=== PATIENT | female | born 1960 | race African-American/Black ===

== ENCOUNTER 2018-06-28 10:33 | Emergency (ER) | payer MEDICAID ==
[2018-06-28] MEDS ORDERED: Ketorolac Tromethamine 60 MG/2 ML VIAL ONE (11:29)
[2018-06-28] MEDS ORDERED: Fentanyl 100 MCG/2 ML VIAL ONE (12:26)
[2018-06-28] MEDS ORDERED: Lorazepam 2 MG/ML VIAL ONE (12:54)
--- NOTE | 2018-06-28 13:35 | RAD ---
LEFT FEMUR 2 VIEWS: HISTORY: Left leg injury. Fall. FINDINGS: Mild degenerative changes of the hip. Femur is intact. No acute fracture or dislocation. IMPRESSION: No acute osseous abnormalities are demonstrated. POS: JAYASHREE
--- NOTE | 2018-06-28 13:45 | RAD ---
PORTABLE AP VIEW PELVIS: DATE: 06/28/2018. HISTORY: Trauma, left leg pain. FINDINGS: There are scattered sclerotic densities seen throughout the visualized osseous structures of the pelv is bilaterally involving the limited proximal femurs and region of the sacrum. Findings may be relat ed to sclerotic metastatic lesions. There is a calcification seen just to the left of the L4-5 inter vertebral disk space. This is difficult to further localize. This does not have a typical appearanc e of a ureteral calculus, although ureteral calculus could not be entirely excluded. No or dislocation is appreciated. There is mild narrowing of the superolateral aspect of each joint space. IMPRESSION: 1. Sclerotic densities seen throughout the pelvis and involving the proximal bilateral femurs. Find ings are worrisome for diffuse osseous metastatic disease. Bone scan is recommended for further eval uation. 2. Calcification adjacent to the L4-5 interspace on the left. This does not have the typical appear ance of a ureteral calculus, although this is in the expected location. This may represent a gonadal vein calcification. If the patient has symptoms referring to left renal colic, CT scan could be per formed for further evaluation. CODE T POS: JAYASHREE
--- NOTE | 2018-06-28 14:03 | CT ---
NONCONTRAST CT PELVIS: DATE: 06/28/2018. HISTORY: Trauma. The patient complains of left leg pain and left hip pain after a fall on 06/21/2018. Histor y of breast cancer with metastatic disease. COMPARISON: None available. FINDINGS: There are innumerable scattered sclerotic densities seen throughout the visualized osseous structures including the lower lumbar spine, sacrum, iliac bones, and involving the proximal femur suggesting o sseous metastatic disease. No fracture or dislocation is seen. No joint effusion is appreciated inv olving either hip; although there is a question of a tiny amount of fluid involving the left hip join t which his probably physiologic. No free fluid is seen in the pelvis. The uterus is not visualized probably related to prior hysterec rudi. A gonadal vein calcification is seen on the left corresponding to calcification seen on recent pelvis radiograph. IMPRESSION: 1. Sclerotic osseous metastatic lesions diffusely throughout the pelvis and involving the proximal f emurs as well as lower lumbar spine. 2. No fracture or dislocation involving either hip. POS: JAYASHREE
== END 2018-06-28 13:00 | disposition home or self-care (01) ==
LOC: ERS 10:33
DX: C79.51 Secondary malignant neoplasm of bone (principal); C50.919 Malignant neoplasm of unspecified site of unspecified female breast
CPT/HCPCS: 72170; 72192; 96372; J1885; J2060; J3010

== ENCOUNTER 2018-08-02 18:04 | Inpatient (IN) | payer OTHER ==
--- NOTE | 2018-08-02 18:57 | RAD ---
PORTABLE CHEST: 08/02/18 HISTORY: Chest pain. Heart size is within normal limits. Left sided Mediport catheter is seen. Catheter tip overlies the d istal superior vena cava/right atrium junction. Lungs appear clear of any infiltrative process. Some slight increased density in the left mid lung field, but I would favor that this is related to sclero tic bone lesions rather than infiltrative process. IMPRESSION: 1. No active intrathoracic disease. 2. Findings suspicious for some sclerotic bone metastasis. POS: BORIS
[2018-08-02] MEDS ORDERED: Morphine 4 MG/ML VIAL ONE (19:00)
[2018-08-02 19:28] LABS: ALT (SGPT) 20 U/L (8-55); AST (SGOT) 91 U/L (5-34); Albumin 2.7 g/dL (3.5-5.0); Alkaline Phosphatase 420 U/L (40-150); Anion Gap 14 mmol/L (10-20); BUN (Urea Nitrogen) 8 mg/dL (9.8-20.1); Bilirubin, Total 1.7 mg/dL (0.2-1.2); Calc. Creatinine Clearance 0 mL/min (70-130); Calcium 7.8 mg/dL (7.8-10.44); Carbon Dioxide 17 mmol/L (22-29); Chloride 108 mmol/L (98-107); Estimated GFR-MDRD Greater than 90; Globulin 3.5 g/dL (2.4-3.5); Glucose 86 mg/dL (70-105); Potassium 3.2 mmol/L (3.5-5.1); Protein, Total 6.2 g/dL (6.0-8.3); Sodium 136 mmol/L (136-145)
[2018-08-02 19:59] LABS: Hemoglobin 9.6 g/dL (12.0-16.0); Mean Corpuscular HGB CONC 33.4 g/dL (32.0-36.0); Mean Corpuscular Hemoglobin 31.1 pg (27.0-31.0); Mean Corpuscular Volume 93.3 fL (78.0-98.0); RBC Distribution Width 16.2 % (11.5-14.5); Red Blood Cell (RBC) Count 3.09 mill/uL (4.20-5.40); White Blood Cell (WBC) Count 8.4 thou/uL (4.8-10.8)
[2018-08-02 20:00] LABS: CKMB 0.7 ng/mL (0-6.6)
[2018-08-02 20:06] LABS: Mean Platelet Volume 18.3 fL (7.4-10.4); Platelet Count 8 thou/uL (130-400); Reflex for Review?? YES
[2018-08-02 20:18] LABS: Anisocytosis SLIGHT = 6-15 cells (100X) (0-5/hpf); Band 4 % (5-11); Eosinophils 1 % (0-10); Lymphocytes 20 % (21-51); MDiff Complete? YES; Monocytes 6 % (0-10); Myelocyte 1 % (0-0); Neutrophil 68 % (42-75); Nucleated RBC 3 % (0); Platelet Morphology Comment Appears Decreased
--- NOTE | 2018-08-02 20:18 | PDOC.FPRHP ---
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 She has been receiving care at [facility] for the past 2 weeks, family wanted care transferred to [facility] where her 3 children live and she left AMA today. Breast cancer diagnosed in 2017. Metastasis to bone and brain was new diagnosis at [facility] admission. She was admitted for fever. Daughter reports she was started on IV antibiotics but unsure if she was still on them when they left. Oncologist is Dr Luz. She had been receiving chemo (Gemzar and Carboplatin) and radiation. Most recently receiving brain radiation. Last chemo tx 06/16/18. Currently reports pain 8/10, which is where she has been the last 2 weeks. She was 10/10 on admission but pain improved with morphine 8mg. Pain is located in lower abdomen. Daughter reports they found cancer in that area. She denies nausea, vomiting, chest pain, shortness of breath. Pt has been living with her mother in [place] and able to preform her ADLs prior to hospitalization. Daughter reports she is still able to walk but needs help at times. ED Course: Mrophine 8mg - Allergies/Adverse Reactions Allergies Allergy/AdvReac Type Severity Reaction Status Date / Time No Known Allergies Allergy Unverified 08/02/18 20:34 - Home Medications Medication Instructions Recorded Confirmed Type CARBOplatin 08/02/18 History Docusate [Colace] 100 g PO BID 08/02/18 08/02/18 History Gemzar 08/02/18 History HYDROcodone/Acetaminophen [Preston 10 - 325 mg PO Q4H PRN 08/02/18 08/02/18 History 10-325 Tablet] - History PMHx: Breast Cancer - receiving chemo and radiation PSHx: Hysterectomy FHx: Daughter breast cancer- Dr Sarah Oncologist Social: Denies tobacco, alcohol and drug use. - Review of Systems General: reports: other (reports pain). denies: fever/chills, weight/appetite/ sleep changes, fatigue Eyes: reports: other ENT: reports: other (reports decreased hearing over last 2 months). denies: nasal congestion, rhinorrhea Respiratory: denies: cough, shortness of breath Cardiovascular: denies: chest pain, palpitation Gastrointestinal: reports: abdominal pain. denies: nausea, vomiting Genitourinary: denies: dysuria Skin: reports: rashes (radiation skin changes on chest wall). denies: lesions Musculoskeletal: reports: pain, tenderness Neurological: denies: numbness, seizure - Vital signs BP: 138/90 HR: 90 RR: 19 Tmax: 98.3 Pox: 97% on RA Wt: 68kg - Physical Exam Constitutional: awake, alert and oriented, well developed HEENT: normocephalic and atraumatic, MMM, oropharynx clear, other (poor dentition. Wears glasses Diminished hearing) Neck: supple, trachea midline Heart: RRR, no murmurs/rubs/gallops, pulses present, no edema Lungs: CTAB, no respiratory distress, good air movement, no wheezing Abdomen: soft, bowel sounds present, other (tenderness in lower quadrants) Musculoskeletal: normal structure, normal tone Neurological: no focal deficit Skin: capillary refill <2 seconds, other (radiation changes on chest wall on right breast. Port on left chest) Psychiatric: normal mood and affect, good judgment and insight, intact recent and remote memory FMR H&P: Results - Labs Result Diagrams: 08/02/18 23:50 08/02/18 19:00 Lab results: WBC 8.4 thou/uL (4.8-10.8) 08/02/18 19:36 Hgb 9.6 g/dL (12.0-16.0) L 08/02/18 19:36 Hct 28.8 % (36.0-47.0) L 08/02/18 19:36 MCV 93.3 fL (78.0-98.0) 08/02/18 19:36 Plt Count 8 thou/uL (130-400) L* 08/02/18 19:36 Sodium 136 mmol/L (136-145) 08/02/18 19:00 Potassium 3.2 mmol/L (3.5-5.1) L 08/02/18 19:00 Chloride 108 mmol/L (98-107) H 08/02/18 19:00 Carbon Dioxide 17 mmol/L (22-29) L 08/02/18 19:00 BUN 8 mg/dL (9.8-20.1) L 08/02/18 19:00 Creatinine 0.57 mg/dL (0.6-1.1) L 08/02/18 19:00 Glucose 86 mg/dL (70-105) 08/02/18 19:00 Calcium 7.8 mg/dL (7.8-10.44) 08/02/18 19:00 Total Bilirubin 1.7 mg/dL (0.2-1.2) H 08/02/18 19:00 AST 91 U/L (5-34) H 08/02/18 19:00 ALT 20 U/L (8-55) 08/02/18 19:00 Alkaline Phosphatase 420 U/L (40-150) H 08/02/18 19:00 CK-MB (CK-2) 0.7 ng/mL (0-6.6) 08/02/18 19:00 Serum Total Protein 6.2 g/dL (6.0-8.3) 08/02/18 19:00 Albumin 2.7 g/dL (3.5-5.0) L 08/02/18 19:00 - Radiology Interpretation Chest x-ray Status: report reviewed by me Additional comment: Sclerotic bone lesions FMR H&P: A/P - Problem List (1) Thrombocytopenia Current Visit: No Status: Acute Code(s): D69.6 - THROMBOCYTOPENIA, UNSPECIFIED (2) Metastatic breast cancer Current Visit: No Status: Acute Code(s): C50.919 - MALIGNANT NEOPLASM OF UNSP SITE OF UNSPECIFIED FEMALE BREAST (3) Transaminitis Current Visit: No Status: Acute Code(s): R74.0 - NONSPEC ELEV OF LEVELS OF TRANSAMNS & LACTIC ACID DEHYDRGNSE (4) Hypokalemia Current Visit: Yes Status: Acute Code(s): E87.6 - HYPOKALEMIA (5) Hyperbilirubinemia Current Visit: Yes Status: Acute Code(s): E80.6 - OTHER DISORDERS OF BILIRUBIN METABOLISM (6) Elevated troponin Current Visit: Yes Status: Acute Code(s): R74.8 - ABNORMAL LEVELS OF OTHER SERUM ENZYMES - Plan Ms Kilgore is a 58yo female with pmh of metastatic breast cancer admitted for thrombocytopenia Thrombocytopenia - 8 on admission - hemodynamically stable - Minimize blood draws - Had been receiving transfusions at [facility] - Will transfuse 6pk platelets - CBC with next troponin - Requesting records - Admit to Medicine Metastatic breast cancer - Oncologist Dr Luz in [place] - Consult Onc in AM, daughter saw Dr Sarah for breast cancer - S/p Morphine 8mg in ED - Continue home pain regimen: Preston 10/325mg q6hr PRN - Ensure Enlive TID after meals - Requesting records Elevated Troponin - No ASA due to thrombocytopenia - EKG with ST segment changes, T wave inversions - Repeat EKG - Trend troponins Transaminitis - likely 2/2 liver mets - Continue to monitor Hyperbilirubinemia - likely 2/2 liver mets - Continue to monitor Hypokalcemia - 3.2 - Replaced with 40 PO in ED - Continue to monitor Hearing loss - likely result of carboplatin tx Code Status: FULL DVT ppx: SCDs and walking program FMR H&P: Upper Level - Pertinent history Ms. Kilgore is a 58 yo AAF with PMHx of breast cancer (dx 2017) with known metastasis to brain and bone who presened to ED for body aches and hip pain which has been characteristic of her cancer pain. She was recently hospitalized in [place] for 2 weeks at which time the mets were diagnosed. Daughter who is with her at bedside states that they were not wanting to do any more for her so they decided to leave AMA and bring her here where most of her family is. She denies any symptoms apart from pain in her hips which has been the main source of her cancer pain. - Pertinent findings Gen: awake, alert, answering most questions appropriately HEENT: NCAT, MMM, trachea midline CV: Intermittently tachycardic, regular rhythm, no murmur RESP: CTAB ABD: soft, NTND EXT: no edema - Plan Date/Time: 08/02/182017 58 yo F with known metastatic breast cancer here with thrombocytopenia and intractable pain 1. Thrombocytopenia - 8 on admission - Since < 10, will transfuse 1 6 pk platelets - Heme/onc consult - Monitor closely for bleeding, minimize blood draws 2. Metastatic breast cancer - Would like to transfer to oncologist here - Requesting records and will likely consult onc inpatient for Heme - Pain control, will need bowel regimen 3. Elevated troponin - No chest pain - T wave inversion on EKG, unknown if old or new, will repeat tonight - Downtrending, will check final trop at same time as thrombocytopenia 4. Transaminitis/hyperbilirubinemia - Suspect liver mets vs. medication side effect - Continue to monitor - Records pending 5. Hypokalemia - Replete and monitor, check Mg/Phos I, Darlene Gardner MD, PGY-3, have evaluated this patient and agree with findings/ plan as outlined by corporate development intern resident. Pertinent changes/additions are listed here.
[2018-08-02 21:15] LABS: Bilirubin Negative (Negative); Blood, Urine Small (Negative); Clarity CLEAR (Clear); Glucose, Urine (Dipstick) Negative (Negative); Leukocyte Negative (Negative); Nitrite Negative (Negative); Protein, Urine (Dipstick) 30 mg/dL (Neg-Trace); Specific Gravity, Urine 1.008 (1.002-1.036); pH, Urine 6.5 (5.0-9.0)
[2018-08-02 21:16] LABS: Bacteria/HPF None Seen HPF (None Seen); Hyaline Casts/LPF 0-3 HYALINE CAST LPF (0-3 Hyaline); Pathc Cast-AUWi Flag 0.14 (0-2.49); WBC/HPF 0-3 HPF (0-3)
[2018-08-02 21:19] LABS: Yeast-AUWi Flag 26.7 (0-25.0)
[2018-08-02 21:27] LABS: Troponin I 0.037 ng/mL (< 0.028)
[2018-08-02 21:29] LABS: Yeast-All Forms None Seen HPF (None Seen)
[2018-08-02] MEDS ORDERED: HYDROcodone/Acetaminophen 10/325 mg Tablet PO PRN (21:58)
[2018-08-02] MEDS ORDERED: Potassium Chloride 20 MEQ TAB PO SCH (22:00)
[2018-08-02 22:16] VITALS: BMI 26.5
[2018-08-02] MEDS ORDERED: Morphine 4 MG/ML VIAL SLOW IVP SCH ×2 (22:30→23:59)
[2018-08-02 23:06] LABS: Magnesium 1.1 mg/dL (1.6-2.6); Phosphorus 2.1 mg/dL (2.3-4.7)
[2018-08-03 00:34] LABS: #Lymphocytes 2.6 thou/uL (1.20-3.40); #Monocytes 0.6 thou/uL (0.11-0.59); #Neutrophils 5.6 thou/uL (1.40-6.50); %Basophils 0.3 % (0.0-1.0); %Eosinophils 0.5 % (0.0-10.0); %Lymphocytes 29.4 % (21.0-51.0); %Monocytes 6.3 % (0.0-10.0); %Neutrophils 63.5 % (42.0-75.0); Hemoglobin 9.1 g/dL (12.0-16.0); Mean Corpuscular HGB CONC 33.1 g/dL (32.0-36.0); Mean Corpuscular Hemoglobin 30.7 pg (27.0-31.0); Mean Corpuscular Volume 92.9 fL (78.0-98.0); Mean Platelet Volume 18.9 fL (7.4-10.4); Platelet Count 7 thou/uL (130-400); Platelet Morphology Comment Appears Decreased; RBC Distribution Width 15.9 % (11.5-14.5); Red Blood Cell (RBC) Count 2.97 mill/uL (4.20-5.40); White Blood Cell (WBC) Count 8.7 thou/uL (4.8-10.8)
[2018-08-03 00:48] LABS: Troponin I 0.046 ng/mL (< 0.028)
[2018-08-03 01:49] LABS: INR-International Normal Ratio 1.3; PTT 45.1 SEC (22.9-36.1); Prothrombin Time 16.5 SEC (12.0-14.7)
[2018-08-03] MEDS ORDERED: oxyCODONE/Acetaminophen 5 mg/325 mg Tablet PO PRN (02:30)
[2018-08-03] MEDS ORDERED: Morphine 4 MG/ML VIAL SLOW IVP PRN (02:45)
[2018-08-03] MEDS: oxyCODONE/Acetaminophen 5 mg/325 mg Tablet PO SCH ×6 (02:49→22:36)
[2018-08-03] MEDS: Morphine 4 MG/ML VIAL SLOW IVP PRN ×7 (02:49→22:58)
--- NOTE | 2018-08-03 06:54 | PDOC.FM ---
- Subjective Subjective: NAEO. Patient states she is currently pain free. Denies any N/V/D or constipation. - Objective MAR Reviewed: Yes Vital Signs & Weight: Vital Signs (12 hours) Temp Pulse Pulse Resp BP BP Pulse Ox 08/03/18 06:20 98.3 F 100 18 125/73 94 L 08/03/18 02:55 98.6 F 99 18 123/81 93 L 08/03/18 02:41 98.7 F 103 H 20 142/88 H 92 L 08/02/18 21:45 100.2 F H 102 H 20 148/75 H 95 Weight Weight 68 kg I&O: 08/01/18 08/02/18 08/03/18 06:59 06:59 06:59 Intake Total 250 Balance 250 Result Diagrams: 08/02/18 23:50 08/02/18 19:00 Phys Exam - Physical Examination Constitutional: NAD HEENT: moist MMs, sclera anicteric Neck: supple, full ROM Respiratory: no wheezing, no rales, no rhonchi, clear to auscultation bilateral Cardiovascular: RRR, no significant murmur Gastrointestinal: soft, non-tender, no distention, positive bowel sounds Neurological: non-focal, moves all 4 limbs Psychiatric: normal affect Skin: no rash, normal turgor Dx/Plan (1) Hypomagnesemia Code(s): E83.42 - HYPOMAGNESEMIA Status: Acute (2) Hypophosphatemia Code(s): E83.39 - OTHER DISORDERS OF PHOSPHORUS METABOLISM Status: Acute (3) Elevated troponin Code(s): R74.8 - ABNORMAL LEVELS OF OTHER SERUM ENZYMES Status: Acute (4) Hyperbilirubinemia Code(s): E80.6 - OTHER DISORDERS OF BILIRUBIN METABOLISM Status: Acute (5) Hypokalemia Code(s): E87.6 - HYPOKALEMIA Status: Acute (6) Metastatic breast cancer Code(s): C50.919 - MALIGNANT NEOPLASM OF UNSP SITE OF UNSPECIFIED FEMALE BREAST Status: Acute (7) Thrombocytopenia Code(s): D69.6 - THROMBOCYTOPENIA, UNSPECIFIED Status: Acute (8) Transaminitis Code(s): R74.0 - NONSPEC ELEV OF LEVELS OF TRANSAMNS & LACTIC ACID DEHYDRGNSE Status: Acute - Plan Plan: Ms Kilgore is a 58yo female with pmh of metastatic breast cancer admitted for thrombocytopenia. Thrombocytopenia - 8 on admission & down to 7 on repeat bloodwork - Will minimize blood draws & monitor vitals closely - Had been receiving transfusions at [facility]. Will request records today. - Will transfuse 6pk platelets & geta repeat CBC tomorrow AM. Metastatic breast cancer - Oncologist Dr Luz in [place] - Will consult Onc here tomorrow as daughter saw Dr Sarah for breast cancer. PC consulted as well to discuss goals of care. - S/p Morphine 8mg in ED - Will continue PO Percocet RAMOS Q4H w/ IV morphine for breakthrough pain today and convert to longer acting PO medication tomorrow after seeing how much she requires for pain control. - Ensure Enlive TID after meals - Requesting records from [place] - Will consult PT/OT as well for evaluation & treatment for deconditioning. Elevated Troponin - No ASA due to thrombocytopenia - EKG with ST segment changes, T wave inversions - Repeat EKG unchanged. - Likely demand ischemia. Very low suspicion for ACS. Will stop trending. Transaminitis - likely 2/2 liver mets - Will continue to monitor Hyperbilirubinemia - likely 2/2 liver mets - Will continue to monitor Hypokalemia - 3.2 on admission - Replaced with 40 PO in ED - Will continue to monitor Hypomagnesemia - Mg low at 1.1 on admission - Will replace with 2g IV - Will continue to monitor and replace PRN Hypophosphatemia - Phos mildly low at 2.1 - Will replace with 1 packet of PhosNak this AM and continue to monitor and replace PRN Hearing loss - likely result of carboplatin tx Code Status: FULL DVT ppx: SCDs and walking program GI PPx: None
[2018-08-03] MEDS: Docusate 100 MG CAP PO SCH ×2 (08:35→21:03)
[2018-08-03] MEDS: Polyethylene Glycol 3350 17 GM Packet PO SCH (08:35)
[2018-08-04] MEDS: Morphine 4 MG/ML VIAL SLOW IVP PRN ×3 (01:07→05:55)
[2018-08-04] MEDS: oxyCODONE/Acetaminophen 5 mg/325 mg Tablet PO SCH ×2 (04:00→05:54)
--- NOTE | 2018-08-04 06:20 | PDOC.FM ---
- Subjective Subjective: NAEO. Patient endorses improved abdominal pain. Says currently 09/07. Denies any fever/chills, SOB, cough, or palpitations. - Objective MAR Reviewed: Yes Vital Signs & Weight: Vital Signs (12 hours) Temp Pulse Resp BP Pulse Ox 08/04/18 00:00 98.2 F 111 H 20 127/77 92 L 08/03/18 21:00 99.5 F 116 H 20 118/71 92 L 08/03/18 20:00 92 L Weight Weight 68 kg I&O: 08/02/18 08/03/18 08/04/18 06:59 06:59 06:59 Intake Total 250 700 Balance 250 700 Result Diagrams: 08/04/18 06:20 08/04/18 06:20 Phys Exam - Physical Examination Constitutional: NAD HEENT: moist MMs Neck: supple, full ROM Respiratory: no wheezing, no rales, no rhonchi, clear to auscultation bilateral Cardiovascular: no significant murmur Gastrointestinal: soft, non-tender, no distention, positive bowel sounds Neurological: non-focal, moves all 4 limbs Psychiatric: normal affect Skin: no rash, normal turgor Dx/Plan (1) Hypomagnesemia Code(s): E83.42 - HYPOMAGNESEMIA Status: Acute (2) Hypophosphatemia Code(s): E83.39 - OTHER DISORDERS OF PHOSPHORUS METABOLISM Status: Acute (3) Elevated troponin Code(s): R74.8 - ABNORMAL LEVELS OF OTHER SERUM ENZYMES Status: Acute (4) Hyperbilirubinemia Code(s): E80.6 - OTHER DISORDERS OF BILIRUBIN METABOLISM Status: Acute (5) Hypokalemia Code(s): E87.6 - HYPOKALEMIA Status: Acute (6) Metastatic breast cancer Code(s): C50.919 - MALIGNANT NEOPLASM OF UNSP SITE OF UNSPECIFIED FEMALE BREAST Status: Acute (7) Thrombocytopenia Code(s): D69.6 - THROMBOCYTOPENIA, UNSPECIFIED Status: Acute (8) Transaminitis Code(s): R74.0 - NONSPEC ELEV OF LEVELS OF TRANSAMNS & LACTIC ACID DEHYDRGNSE Status: Acute - Plan Plan: Ms Kilgore is a 58yo female with pmh of metastatic breast cancer admitted for thrombocytopenia. Thrombocytopenia - 8 on admission & down to 7 on repeat bloodwork. Down to 6 this AM s/p 6packs of platelets yesterday. Will get a repeat AM CBC. - Will minimize blood draws & monitor vitals closely. - Had been receiving transfusions at [facility]. Will request records today. Metastatic breast cancer - Oncologist Dr Luz in [place]. - Will consult Onc here tomorrow as daughter saw Dr Sarah for breast cancer. PC consulted as well to discuss goals of care. - Will stat on 40mg oxycontin BID with percocet 5/325 Q4H PRN for breakthrough pain and titrate meds for pain control PRN. Will also consider adding gabapentin for bony met pain control. - Ensure Enlive TID after meals. - Requesting records from [place]. - Will consult PT/OT as well for evaluation & treatment for deconditioning. Elevated Troponin - No ASA due to thrombocytopenia - EKG with ST segment changes, T wave inversions - Repeat EKG unchanged. - Likely demand ischemia. Very low suspicion for ACS. Will stop trending. Transaminitis - likely 2/2 liver mets - Will continue to monitor Hyperbilirubinemia - likely 2/2 liver mets - Will continue to monitor Hypokalemia - 2.8 this AM - Will replaced with 40 PO BID-WM today - Will continue to monitor Hypomagnesemia - Mg low at 1.0 this AM. - Will replace with 2g IV - Will continue to monitor and replace PRN Hypophosphatemia - Phos mildly low at 2.0 this AM - Will replace with 1 packet of PhosNak TID and continue to monitor and replace PRN Hearing loss - likely result of carboplatin tx Code Status: FULL DVT ppx: SCDs and walking program GI PPx: None
[2018-08-04 06:45] LABS: Platelet Count 6 thou/uL (130-400)
[2018-08-04 06:47] LABS: Anion Gap 12 mmol/L (10-20); BUN (Urea Nitrogen) 4 mg/dL (9.8-20.1); Calc. Creatinine Clearance 112 mL/min (70-130); Calcium 7.7 mg/dL (7.8-10.44); Carbon Dioxide 24 mmol/L (22-29); Chloride 104 mmol/L (98-107); Estimated GFR-MDRD Greater than 90; Glucose 104 mg/dL (70-105); Sodium 137 mmol/L (136-145)
[2018-08-04 06:57] LABS: Potassium 2.8 mmol/L (3.5-5.1)
[2018-08-04] MEDS ORDERED: Magnesium 2 GM/50 ML 2 GM in Premix Bag 1 BAG IVPB SCH (07:15)
[2018-08-04 07:30] LABS: #Lymphocytes 1.7 thou/uL (1.20-3.40); #Monocytes 0.4 thou/uL (0.11-0.59); %Basophils 0.1 % (0.0-1.0); %Eosinophils 0.4 % (0.0-10.0); %Lymphocytes 27.9 % (21.0-51.0); %Monocytes 6.3 % (0.0-10.0); %Neutrophils 65.3 % (42.0-75.0); Hemoglobin 8.2 g/dL (12.0-16.0); Mean Corpuscular HGB CONC 32.9 g/dL (32.0-36.0); Mean Corpuscular Hemoglobin 30.9 pg (27.0-31.0); Mean Corpuscular Volume 93.8 fL (78.0-98.0); Mean Platelet Volume 16.9 fL (7.4-10.4); RBC Distribution Width 16.1 % (11.5-14.5); Red Blood Cell (RBC) Count 2.65 mill/uL (4.20-5.40); White Blood Cell (WBC) Count 6.1 thou/uL (4.8-10.8)
--- NOTE | 2018-08-04 08:37 | HP ---
ADDENDUM: Please see the note history and physical done by Dr. Doretha Gant, and also the progress note done by Jennifer Mayo. HISTORY OF PRESENT ILLNESS: This is an unfortunate 58-year-old Afro-[place]inese female, who comes in basically from [facility], where she was hospitalized for maybe a couple of weeks, where she was admitted sounds like potentially with fever there and metastatic breast cancer. Unclear on the history, it sounds like potentially they were talking hospice care and just palliative care, but then the daughter sees an oncologist here in town and wanted our oncologist opinion. Platelets have been extremely low, although not acutely bleeding. Complains of mostly lower abdominal pains. States her bowel movements are normal. There is some question if she may have cancer metastases in the area. Denied dysuria. It sounds like she gets a little bit confused at times and family members are maybe her power of transactional attorney. Unclear why the troponin levels were checked in the ER and they were borderline high. I think maybe she has had some heart issues in the past, although she had lot of this history as they are not the best historians. Family member is with the patient, who really denied much chest pain or shortness of breath today. Thus being admitted for severe abdominal pain, thought to be from metastatic cancer. Of note, she has been eating. No nausea. No vomiting. I think this is acute abdomen. PAST MEDICAL HISTORY: All per the residents history and physical that I fully reviewed. PAST SURGICAL HISTORY: All per the residents history and physical that I fully reviewed. FAMILY HISTORY: All per the residents history and physical that I fully reviewed. SOCIAL HISTORY: All per the residents history and physical that I fully reviewed. REVIEW OF SYSTEMS: All per the residents history and physical that I fully reviewed. MEDICATIONS: All per the residents history and physical that I fully reviewed. PHYSICAL EXAMINATION: GENERAL: Alert to name and place, pleasant, answers questions appropriately. Does not appear to be in any distress. She states currently it was not hurting. HEENT: Conjunctivae slightly pale. Moist mucosa. Anicteric. NECK: No lymphadenopathy or thyromegaly. CHEST: Clear. HEART: Regular rate and rhythm. ABDOMEN: Benign. Normally appreciate much tenderness in the lower quadrant. No rebound. No guarding or masses. EXTREMITIES: Showed no edema. LABORATORY DATA: Blood workup is significant for again troponin I being minimally elevated at 0.4 at worst. Albumin is low at 2.7, magnesium is low at 1.1, phosphorus low at 2.1, bilirubin is little bit high at 1.7, alkaline phosphatase is high at 420, potassium is low at 3.2, and bicarb is low at 17. White count was fine at 8.7, hemoglobin 9.1 this morning, and platelets were as low as 7, got 6 pack of platelets, we do not have the repeat yet. ASSESSMENT: 1. Metastatic breast cancer, now with abdominal pain thought to be from metastatic disease. 2. Thrombocytopenia. 3. Anemia. 4. Minimally elevated troponin. PLAN: Plan is to get Oncology involved tomorrow, but I will make sure she is stabilized today. We will give her the 6 pack platelets and follow along. Not acutely bleeding. I told her we need to be aggressive about that. We will follow the troponins at this point in time I do not think I am too concerned with needing a stress test, though she is fairly asymptomatic. I get Palliative Care involvement to help us to figure out her code status as it sounds like she signed DNR paperwork in the past, but family is now saying maybe we want full code. Obviously prognosis sounds very poor. Then, we will get oncology help as far as the platelets and where to proceed as far as the cancer goes. Job ID: [id number]
[2018-08-04] MEDS: Potassium Chloride 20 MEQ TAB PO SCH ×2 (08:56→16:00)
[2018-08-04] MEDS: Docusate 100 MG CAP PO SCH ×2 (08:56→21:38)
[2018-08-04] MEDS: Gabapentin 300 MG CAP PO SCH ×3 (08:56→21:39)
[2018-08-04] MEDS: oxyCODONE ER 20 MG TAB PO SCH ×2 (08:56→21:39)
[2018-08-04] MEDS: Polyethylene Glycol 3350 17 GM Packet PO SCH (08:57)
[2018-08-04] MEDS ORDERED: oxyCODONE ER 80 MG TAB PO SCH ×2 (09:00)
[2018-08-04] MEDS: oxyCODONE/Acetaminophen 5 mg/325 mg Tablet PO PRN ×2 (10:45→16:31)
--- NOTE | 2018-08-04 14:34 | PRG ---
DATE OF SERVICE: 08/04/2018 ADDENDUM: This is an addendum to the note of Dr. Jennifer Mayo. Ms. Kilgore is a very unfortunate 58-year-old lady with metastatic breast cancer to bone and brain. She also has a profound thrombocytopenia from recent chemotherapy, and we are giving her an additional platelet transfusion. We will also discuss and consult Dr. Sarah for further management. Job ID: [id number]
--- NOTE | 2018-08-04 17:29 | EKG ---
Test Reason : Blood Pressure : / mmHG Vent. Rate : 104 BPM Atrial Rate : 104 BPM P-R Int : 092 ms QRS Dur : 076 ms QT Int : 374 ms P-R-T Axes : 053 041 -86 degrees QTc Int : 491 ms Sinus tachycardia with short [place] Abnormal ECG No previous ECGs available Confirmed by HAILEY HADLEY, DR. Chapin ([id number]) on 08/04/2018 5:28:56 PM Referred By: VERNA Confirmed By:DR. Tavares HART MD
--- NOTE | 2018-08-04 23:29 | CON ---
DATE OF CONSULTATION: REASON FOR CONSULT: Breast cancer. HISTORY OF PRESENT ILLNESS: Ms. 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 She has bone mets at diagnosis. She has been getting carboplatin and gemcitabine over the past year. In March of last year, she was diagnosed with leptomeningeal metastatic disease. Her last chemotherapy was on July 07, 2018. Shortly thereafter, she was admitted to the hospital in [place], [place] for fever of 103, thrombocytopenia. Review of the medical records show multiple platelet transfusions with no response. She had an unsuccessful bone marrow which was a dry tap during that hospitalization. She was unable to have a lumbar puncture secondary to low platelets. 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 She did undergo three rounds of whole-brain radiation. Recommendation was for hospice. The patient's daughters live in this area, one of which has breast cancer with BRCA deletion. The patient and family decided to leave the [facility] to bring her to this area. According to the hospital records, the patient did not wait for the discharge instructions and left the hospital. She was brought, immediately on arrival to this area to our emergency room, the patient was complaining of severe abdominal pain and constipation. She was admitted for further treatment. The patient denies any chest pain or shortness of breath. She does have abdominal discomfort. The patient denies any melena, hematochezia, hemoptysis, or epistasis. PAST MEDICAL HISTORY: Stage IV metastatic breast cancer with bone and leptomeningeal mets. PAST SURGICAL HISTORY: Hysterectomy. ALLERGIES: NO KNOWN DRUG ALLERGIES. HOME MEDICATIONS: 1. Colace b.i.d. 2. Hydrocodone p.r.n. FAMILY HISTORY: Daughter with BRCA positive breast cancer. SOCIAL HISTORY: No alcohol, tobacco, or illicit drug use. REVIEW OF SYSTEMS: A 10-point review of systems is negative except for noted in HPI. PHYSICAL EXAMINATION: VITAL SIGNS: Temperature 98.6, pulse is 106, respiratory rate 16, BP is 115/80. She is 94% on room air. GENERAL: Chronically ill-appearing female, in no acute distress. HEENT: Normocephalic, atraumatic. Pupils are equal and reactive to light. NECK: Supple. CV: Regular rate and rhythm. LUNGS: Clear. ABDOMEN: Soft, nontender. Bowel sounds are positive. EXTREMITIES: No clubbing, cyanosis, or edema. SKIN: She has inflammatory breast cancer noted on her right chest wall. MediPort to her left chest wall. HEMATOLOGICAL: No petechiae or purpura. NEUROLOGICAL: The patient is alert and oriented. She does have generalized tremors. PERTINENT LABS AND X-RAYS: Current WBCs are 6.1, hemoglobin 8.2, hematocrit 24.8, platelet count is 6000, 65% neutrophils, 27% lymphocytes. PT 16.5, INR is 1.3, PTT is 45.1. Sodium is 137, potassium 2.8, chloride 104, CO2 is 24, BUN is 4, creatinine 0.58, calcium 7.7, phosphorus 2, magnesium 1, bilirubin 1.7, AST is 91, ALT is 20, alkaline phosphatase is 420. Serum total protein is 6.2, albumin 2.7, globulin 3.5. Chest x-ray shows sclerotic bony lesions. ASSESSMENT: 1. Stage IV metastatic breast cancer, triple negative with last chemotherapy of carboplatin and gemcitabine on July 07, 2018. 2. Leptomeningeal metastatic disease with status post three cycles of whole-brain radiation one week ago. 3. Thrombocytopenia, presumed chemo related with bone marrow infiltration by dry tap in [place], in July. 4. Transaminitis, chronic, present on prior hospitalization. No evidence of liver mass on CT scan dated July 16, 2018. DISCUSSION: The patient has advanced metastatic disease where she would unlikely tolerate any further chemo. She does have leptomeningeal spread. We will discuss with Dr. Sarah whether continued whole-brain radiation would be appropriate for this lady. Dr. Sarah will follow up with her recommendations. Thank you for the consult. Job ID: [id number]
[2018-08-05] MEDS ORDERED: Acetaminophen 500 MG TAB PO SCH (05:00)
[2018-08-05] MEDS: oxyCODONE/Acetaminophen 5 mg/325 mg Tablet PO PRN ×3 (05:07→21:56)
[2018-08-05 06:59] LABS: Hemoglobin 6.7 g/dL (12.0-16.0); Mean Corpuscular HGB CONC 32.3 g/dL (32.0-36.0); Mean Corpuscular Hemoglobin 30.4 pg (27.0-31.0); Mean Corpuscular Volume 94.2 fL (78.0-98.0); Mean Platelet Volume 18.2 fL (7.4-10.4); Platelet Count 8 thou/uL (130-400); RBC Distribution Width 15.9 % (11.5-14.5); Red Blood Cell (RBC) Count 2.21 mill/uL (4.20-5.40); White Blood Cell (WBC) Count 5.2 thou/uL (4.8-10.8)
[2018-08-05 07:04] LABS: Phosphorus 2.4 mg/dL (2.3-4.7)
[2018-08-05 07:06] LABS: Anion Gap 13 mmol/L (10-20); BUN (Urea Nitrogen) 4 mg/dL (9.8-20.1); Calc. Creatinine Clearance 100 mL/min (70-130); Calcium 7.5 mg/dL (7.8-10.44); Carbon Dioxide 24 mmol/L (22-29); Chloride 104 mmol/L (98-107); Estimated GFR-MDRD Greater than 90; Glucose 146 mg/dL (70-105); Magnesium 1.1 mg/dL (1.6-2.6); Potassium 3.2 mmol/L (3.5-5.1); Sodium 138 mmol/L (136-145)
--- NOTE | 2018-08-05 07:41 | PDOC.FM ---
- Subjective Subjective: Patient spiked a fever up to 100.5F overnight that was treated with tylenol. Endorses SOB on exam. Denies any chest pain, cough, or melena or hematochezia. - Objective MAR Reviewed: Yes Vital Signs & Weight: Vital Signs (12 hours) Temp Pulse Resp BP Pulse Ox 08/05/18 06:34 98.9 F 123 H 97 08/05/18 04:35 93 L 08/05/18 04:00 100.5 F H 130 H 16 129/80 90 L 08/04/18 23:47 99.1 F 126 H 18 135/88 93 L 08/04/18 20:00 91 L 08/04/18 19:59 98.4 F 115 H 16 117/82 91 L Weight Admit Weight 67.993 kg Weight 67.993 kg I&O: 08/04/18 08/05/18 08/06/18 06:59 06:59 06:59 Intake Total 1800 675 Output Total 1250 800 Balance 550 -125 Result Diagrams: 08/05/18 06:35 08/05/18 06:35 Phys Exam - Physical Examination Constitutional: NAD HEENT: moist MMs, sclera anicteric Neck: supple, full ROM Respiratory: no wheezing, no rales, no rhonchi, clear to auscultation bilateral Cardiovascular: RRR, no significant murmur Gastrointestinal: positive bowel sounds Musculoskeletal: no edema Neurological: non-focal, moves all 4 limbs Psychiatric: normal affect, A&O x 3 Skin: no rash, normal turgor, cap refill <2 seconds Dx/Plan (1) Metastatic breast cancer Code(s): C50.919 - MALIGNANT NEOPLASM OF UNSP SITE OF UNSPECIFIED FEMALE BREAST Status: Acute (2) Hypomagnesemia Code(s): E83.42 - HYPOMAGNESEMIA Status: Acute (3) Hypophosphatemia Code(s): E83.39 - OTHER DISORDERS OF PHOSPHORUS METABOLISM Status: Acute (4) Elevated troponin Code(s): R74.8 - ABNORMAL LEVELS OF OTHER SERUM ENZYMES Status: Acute (5) Hyperbilirubinemia Code(s): E80.6 - OTHER DISORDERS OF BILIRUBIN METABOLISM Status: Acute (6) Hypokalemia Code(s): E87.6 - HYPOKALEMIA Status: Acute (7) Thrombocytopenia Code(s): D69.6 - THROMBOCYTOPENIA, UNSPECIFIED Status: Acute (8) Transaminitis Code(s): R74.0 - NONSPEC ELEV OF LEVELS OF TRANSAMNS & LACTIC ACID DEHYDRGNSE Status: Acute - Plan Plan: Ms. Kilgore is a 58yo female with pmh of metastatic breast cancer admitted for thrombocytopenia. Thrombocytopenia - Stable at 8 this AM s/p 2 packs of platelets since admission. Per onc likely 2 /2 BM infiltration from brain mets &/or chemo. - Will minimize blood draws & monitor vitals closely. 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 Onc on board with this. Anemia - Hgb down to 6.7 this AM. - Will transfuse 1 unit and recheck Hgb 4 hours post-transfusion. - Will consider and FOBT given thrombocytopenia as well to r/o any active bleeding. Metastatic breast cancer - Oncologist Dr Luz in [place] but patient desires to be seen and treated by Dr. Sarah now. - Touched base with Dr. Sarah who came by and evaluated patient this AM. Does not believe patient will respond to any further chemo given her brain mets but will have Dr. Pena come and evaluate patient to address finishing brain radiation per family's wishes. Was able to convince patient and family to make patient DNAR. - PC on board. Appreciate recs. - Will continue 40mg oxycontin BID with percocet 5/325 Q4H PRN for breakthrough pain and titrate meds for pain control PRN. - Will continue gabapentin for bony met pain control. - Ensure Enlive TID after meals. - Will consult PT/OT as well for evaluation & treatment for deconditioning & placement recs. Elevated Troponin - No ASA due to thrombocytopenia - EKG with ST segment changes, T wave inversions - Repeat EKG unchanged. - Likely demand ischemia. Very low suspicion for ACS. Will stop trending. Transaminitis - likely 2/2 liver mets - Will continue to monitor Hyperbilirubinemia - likely 2/2 liver mets - Will continue to monitor Hypokalemia - 3.2 this AM - Will replaced with 40 PO BID-WM today - Will continue to monitor Hypomagnesemia - Mg low at 1.1 this AM. - Will replace with 2g IV - Will continue to monitor and replace PRN Hypophosphatemia, resolved - Phos WNLs at 2.4 this AM - Will continue to monitor and replace PRN Hearing loss - likely result of carboplatin tx Code Status: FULL DVT ppx: SCDs and walking program/PT GI PPx: None Dispo: Awaiting recs from Onc regarding d/c. Will likely need Hospice and palliative care.
[2018-08-05] MEDS ORDERED: Magnesium 2 GM/50 ML 2 GM in Premix Bag 1 BAG IVPB SCH (07:45)
[2018-08-05 08:05] LABS: Band 9 % (5-11); Eosinophils 1 % (0-10); Lymphocytes 33 % (21-51); MDiff Complete? YES; Monocytes 7 % (0-10); Neutrophil 50 % (42-75); Nucleated RBC 8 % (0); Platelet Morphology Comment Appears Decreased; Polychromasia SLIGHT = 2-3 cells (100X) (0-2/hpf)
[2018-08-05] MEDS ORDERED: oxyCODONE ER 20 MG TAB PO SCH ×2 (08:54→19:15)
[2018-08-05] MEDS: Potassium Chloride 20 MEQ TAB PO SCH ×2 (09:34→17:32)
[2018-08-05] MEDS: Polyethylene Glycol 3350 17 GM Packet PO SCH (09:34)
[2018-08-05] MEDS: Gabapentin 300 MG CAP PO SCH ×3 (09:34→21:54)
[2018-08-05] MEDS: Docusate 100 MG CAP PO SCH ×2 (09:34→21:54)
--- NOTE | 2018-08-05 12:49 | PRG ---
DATE OF SERVICE: 08/05/2018 The patient has been seen in consultation by Oncology and we appreciate their input. They feel that given her advanced metastatic disease, she would likely not tolerate further chemotherapy. She also has brain mets as well as thrombocytopenia. This is likely not responding as result of platelet antibodies. We will therefore discontinue and transfuse only if the patient should bleed. In the event, her outlook is extremely grim. Job ID: [id number]
[2018-08-05] MEDS ORDERED: oxyCODONE ER 10 MG TAB PO SCH ×3 (19:15→21:00)
[2018-08-05 20:08] LABS: Hemoglobin 9.6 g/dL (12.0-16.0)
--- NOTE | 2018-08-05 20:39 | CON ---
DATE OF CONSULTATION: 08/05/2018 REASON FOR CONSULTATION: Ms. 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 I was asked to see her for consideration of radiation therapy. HISTORY OF PRESENT ILLNESS: Ms. 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 She informs me that she had bone metastasis at diagnosis. She has been on chemotherapy ever since 2017. More recently, she was on carboplatin and Gemzar. Apparently, she is doing fairly well up until about a month ago. She was hospitalized in [place] because of fever and declining performance status. She has had problems with her blood counts. She did have an MRI of the brain, which suggested thickening of the leptomeninges with some edema consistent with leptomeningeal carcinomatosis. She underwent an attempted bone marrow biopsy, but this was a dry tap. She also was recommended to have a lumbar puncture, but this could not be performed because of her low platelets. She apparently started treatment with radiation and received three fractions of radiation therapy in [place]. It was recommended that she be on hospice care. She then apparently checked out of the hospital AMA and showed up in our emergency room because she has family who lives here in [facility]. She was admitted for workup and evaluation. She is pancytopenic and has a platelet count that has not responded to transfusion. She was seen by Cammy Sequeira and Dr. Sarah and felt not to be a candidate for chemotherapy. I am seeing her today to decide whether to continue her radiation. Presently, she denies any fever. She has no headaches or double vision. Her speech is slurred. She does feel that her legs are weak and denies any arm weakness. Several days ago, she was having lower back pain, but does not have any back pain at the present. She denies any leg numbness or bowel or bladder issues. She has no nausea or vomiting. She voices no other complaints. PAST MEDICAL HISTORY: 1. Stage IV metastatic breast cancer as mentioned above. 2. Status post hysterectomy. 3. She denies other medical or surgical problems. MEDICATIONS: 1. Colace. 2. Neurontin. 3. OxyContin. 4. Zofran. 5. Percocet. 6. MiraLAX. ALLERGIES: NO KNOWN MEDICAL ALLERGIES. FAMILY HISTORY: She does have a daughter who has BRCA positive breast cancer. SOCIAL HISTORY: The patient had been living in [place], [place]. She has no alcohol or tobacco use at the present time. REVIEW OF SYSTEMS: A 10-system review of systems is otherwise negative. PHYSICAL EXAMINATION: VITAL SIGNS: Height is 5 feet 3 inches, weight 149 pounds. Blood pressure is 142/78, pulse is 123, respirations are 16, temperature is 98.5, O2 saturation is 97% on room air. GENERAL: She is alert, but chronically ill in appearance. She is confined in the bed and states that she is really not able to walk at the present. Karnofsky performance status is 40%. HEENT: Eyes, pupils are equal, round, reactive to light. Extraocular movements are intact. ENT, oral cavity and oropharynx are normal without lesion or erythema. Palate elevates symmetrically. Gingiva is intact. NECK: Supple without cervical adenopathy. She appears to have multiple supraclavicular lymph nodes palpable on the right side. She possibly has supraclavicular adenopathy on the left. No thyromegaly. Larynx is midline. LUNGS: Breathing nonlabored. Clear to auscultation and percussion. CARDIOVASCULAR: Heart rate and rhythm without murmur. No lower extremity edema. LYMPHATIC: She does have palpable axillary lymph nodes on the right. No axillary adenopathy on the left. No inguinal adenopathy. BREASTS: She has multiple skin nodules involving the right breast. ABDOMEN: Soft, nontender, nondistended without mass or hepatosplenomegaly. Liver percusses to normal size. SKIN: Without rash or purpura. NEUROLOGIC: Cranial nerves 2 through 12 are grossly intact. Motor strength is 5/5 in both upper and lower extremities in all muscle groups tested. Reflexes are brisk, but symmetrical. Gait is not tested. LABORATORY DATA: CBC revealed a white blood cell count of 5200 with a hemoglobin of 6.7 and hematocrit of 20.8. Platelet count was 8000. Chemistry group showed a calcium of 7.5. She does have elevated liver function tests, which are chronic. RADIOLOGIC DATA: She does not have any imaging here. Reviewed the report from her MRI of the brain, showed some thickening of the leptomeninges with some vasogenic edema. CT scan has suggested extensive bone metastasis, no liver metastasis. ASSESSMENT: Ms. Kilgore is a 58-year-old female with end-stage metastatic triple negative breast cancer with bone metastasis and leptomeningeal carcinomatosis. PLAN: Ms. Kilgore does appear to have end-stage disease. Her performance status is quite poor and in discussing with her and the family it is quite evidence that she has declined fairly rapidly in the past month. Her pancytopenia is felt to be from extensive bone marrow involvement from her metastatic breast cancer and this was likely confirmed with a dry tap. She has thrombocytopenia that appears to be refractory to platelet infusions. Her biggest difficulty is rapidly declining status and the fact that she has a poor performance status now and basically is not able to get out of bed. She had been started on radiation therapy while in [place] for her leptomeningeal carcinomatosis. I think that with her poor performance status and the fact that she has such widespread disease with no additional treatment available with chemotherapy, her survival is likely to be quite short. I did confirm with Dr. Sarah that she really has no chemotherapy or other treatment options. Dr. Sarah agrees with me that her survival is likely to be quite short. I do not think that resuming palliative radiation therapy would be likely of much benefit. I do not think that radiation therapy would likely extend her survival or really improve her symptomatology. Since she did have some vasogenic edema, I think we could start her on some dexamethasone and see if this improves her situation. We could resume her radiation therapy, but my biggest concern is that she would spend basically most of the time that she has remained in trying to come for treatment when she would best be served by hospice care to try and maximize her survival and quality of life that way. Again, I do not think that radiation is going to make any meaningful change in her survival or quality of life. The logistics of radiation as well as the benefits and risk of treatment were discussed with her. Side effects would include, but not be limited to skin reaction, fatigue, hair loss, which may be permanent, headache, nausea, vomiting, and small risk of damage to her normal brain. Thus, while resuming radiation as an option, I really think her best plan of care would be to pursue hospice care. I did make this recommendation to her in the family. This was discussed quite extensively. They are going to consider her treatment options before making a final decision, but do seem to be somewhat accepting of hospice care. Thank you for this interesting consultation. Job ID: [id number]
[2018-08-05] MEDS: Dexamethasone 4 MG TAB PO SCH (21:53)
[2018-08-05] MEDS: Famotidine 20 MG TAB PO SCH (21:54)
[2018-08-06] MEDS ORDERED: Amlodipine 5 MG TAB PO SCH (05:30)
[2018-08-06 06:35] LABS: Phosphorus 2.1 mg/dL (2.3-4.7)
[2018-08-06 06:36] LABS: Anion Gap 14 mmol/L (10-20); BUN (Urea Nitrogen) 5 mg/dL (9.8-20.1); Calc. Creatinine Clearance 100 mL/min (70-130); Calcium 8.4 mg/dL (7.8-10.44); Carbon Dioxide 22 mmol/L (22-29); Chloride 106 mmol/L (98-107); Estimated GFR-MDRD Greater than 90; Glucose 217 mg/dL (70-105); Magnesium 1.4 mg/dL (1.6-2.6); Potassium 4.3 mmol/L (3.5-5.1); Sodium 138 mmol/L (136-145)
[2018-08-06 06:38] LABS: Hemoglobin 10.4 g/dL (12.0-16.0); Mean Corpuscular HGB CONC 32.8 g/dL (32.0-36.0); Mean Corpuscular Hemoglobin 30.5 pg (27.0-31.0); Mean Corpuscular Volume 93.2 fL (78.0-98.0); Mean Platelet Volume 17.9 fL (7.4-10.4); Platelet Count 7 thou/uL (130-400); RBC Distribution Width 16.1 % (11.5-14.5); White Blood Cell (WBC) Count 6.5 thou/uL (4.8-10.8)
[2018-08-06] MEDS ORDERED: Magnesium 2 GM/50 ML 2 GM in Premix Bag 1 BAG IVPB SCH (06:45)
--- NOTE | 2018-08-06 06:52 | PDOC.FM ---
- Subjective Subjective: NAEO. Patient states she feels well this AM. Denies any abdominal pain, N/V/D, SOB, or fever/chills. Family is willing to talk to Hospice today to discuss options. - Objective MAR Reviewed: Yes Vital Signs & Weight: Vital Signs (12 hours) Temp Pulse Resp BP BP Pulse Ox 08/06/18 06:00 109 H 147/104 H 08/06/18 04:55 98.3 F 109 H 18 147/103 H 93 L 08/06/18 00:00 98.7 F 113 H 16 137/89 94 L 08/05/18 20:00 100.9 F H 126 H 20 151/91 H 96 Weight Admit Weight 67.993 kg Weight 67.993 kg I&O: 08/04/18 08/05/18 08/06/18 06:59 06:59 06:59 Intake Total 1800 675 850 Output Total 1250 800 Balance 550 -125 850 Result Diagrams: 08/06/18 06:10 08/06/18 06:10 Phys Exam - Physical Examination Constitutional: NAD HEENT: moist MMs, sclera anicteric Neck: supple, full ROM Respiratory: no wheezing, no rales, no rhonchi, clear to auscultation bilateral Cardiovascular: no significant murmur tachycardic with regular rhythm Gastrointestinal: positive bowel sounds Neurological: non-focal, moves all 4 limbs Psychiatric: normal affect, A&O x 3 Skin: no rash, normal turgor Dx/Plan (1) Metastatic breast cancer Code(s): C50.919 - MALIGNANT NEOPLASM OF UNSP SITE OF UNSPECIFIED FEMALE BREAST Status: Acute (2) Hypomagnesemia Code(s): E83.42 - HYPOMAGNESEMIA Status: Acute (3) Hypophosphatemia Code(s): E83.39 - OTHER DISORDERS OF PHOSPHORUS METABOLISM Status: Acute (4) Elevated troponin Code(s): R74.8 - ABNORMAL LEVELS OF OTHER SERUM ENZYMES Status: Acute (5) Hyperbilirubinemia Code(s): E80.6 - OTHER DISORDERS OF BILIRUBIN METABOLISM Status: Acute (6) Hypokalemia Code(s): E87.6 - HYPOKALEMIA Status: Acute (7) Thrombocytopenia Code(s): D69.6 - THROMBOCYTOPENIA, UNSPECIFIED Status: Acute (8) Transaminitis Code(s): R74.0 - NONSPEC ELEV OF LEVELS OF TRANSAMNS & LACTIC ACID DEHYDRGNSE Status: Acute - Plan Plan: Ms. Kilgore is a 58yo female with pmh of metastatic breast cancer admitted for thrombocytopenia. Thrombocytopenia - Stable at 7 this AM s/p 2 packs of platelets since admission. Per onc likely 2 /2 BM infiltration from brain mets &/or chemo. 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 Onc on board with this. - Will minimize blood draws & monitor vitals closely. Anemia - Hgb up to 10.4 this AM s/p 1 unit of PRBCs given yesterday. - Will continue to monitor w/ QD CBCs. Metastatic breast cancer - Per Dr. Sarah & Dr. Pena, patient has a very poor prognosis and do not recommend pursuing any additional treatment. Both believe patient would benefit most from assuming hospice care. Will reconsult PC to discuss hospice options with family.. Will also have PC readdress code status and sign an OOH-DNAR if needed. - Will continue 40mg oxycontin BID with percocet 5/325 Q4H PRN for breakthrough pain. - Will continue gabapentin for bony met pain control. - Ensure Enlive TID after meals. - Will instruct PT/OT to evaluate and treat patient despite low platelets. Elevated Troponin - No ASA due to thrombocytopenia - EKG with ST segment changes, T wave inversions - Repeat EKG unchanged. - Likely demand ischemia. Very low suspicion for ACS. Will stop trending. Transaminitis - likely 2/2 liver mets - Will continue to monitor Hyperbilirubinemia - likely 2/2 liver mets - Will continue to monitor Hypokalemia, resolved - 4.3 this AM - Will continue to monitor Hypomagnesemia - Mg low at 1.4 this AM. - Will replace with 2g IV - Will continue to monitor and replace PRN Hypophosphatemia, resolved - Phos WNLs at 2.1 this AM - Will continue to monitor and replace PRN Hearing loss - likely result of carboplatin tx Code Status: FULL DVT ppx: SCDs and walking program/PT GI PPx: None Dispo: Awaiting recs from Onc regarding d/c. Will likely need Hospice and palliative care.
[2018-08-06 07:42] LABS: Band 11 % (5-11); Lymphocytes 25 % (21-51); MDiff Complete? YES; Metamyelocyte 2 % (0-0); Monocytes 3 % (0-10); Myelocyte 2 % (0-0); Neutrophil 56 % (42-75); Nucleated RBC 3 % (0); Platelet Morphology Comment Appears Decreased; Polychromasia MODERATE = 3-4 cells (100X) (0-2/hpf); Reactive Lymphocytes 1 % (0-10)
[2018-08-06] MEDS: Polyethylene Glycol 3350 17 GM Packet PO SCH (08:58)
[2018-08-06] MEDS: Potassium Chloride 20 MEQ TAB PO SCH ×2 (08:58→17:57)
[2018-08-06] MEDS: Gabapentin 300 MG CAP PO SCH ×3 (08:59→21:11)
[2018-08-06] MEDS: Dexamethasone 4 MG TAB PO SCH ×2 (08:59→21:11)
[2018-08-06] MEDS: oxyCODONE ER 20 MG TAB PO SCH ×2 (08:59→21:10)
[2018-08-06] MEDS: oxyCODONE ER 10 MG TAB PO SCH ×2 (08:59→21:09)
[2018-08-06] MEDS: Docusate 100 MG CAP PO SCH ×2 (08:59→21:11)
[2018-08-06] MEDS: Famotidine 20 MG TAB PO SCH ×2 (08:59→21:11)
--- NOTE | 2018-08-06 12:29 | PRG ---
DATE OF SERVICE: 08/06/2018 Ms. Kilgore is really pleasant this morning and sitting in bed, smiling. We are consulting Hospice with the consent of the family given her rather dismal outlook from cancer. Platelets are 7000, but she has evidence of no bleeding. We will continue to monitor. Job ID: [id number]
[2018-08-06] MEDS: Ondansetron ODT 4 MG TAB PO PRN ×2 (14:54→22:42)
--- NOTE | 2018-08-07 06:41 | PDOC.FM ---
- Subjective Subjective: NAEO. Patient states her pain is still well-controlled. Denies any SOB, chest pain, N/V/D, or constipation on exam. - Objective MAR Reviewed: Yes Vital Signs & Weight: Vital Signs (12 hours) Temp Pulse Resp BP Pulse Ox 08/07/18 03:50 98.2 F 114 H 16 146/95 H 94 L 08/07/18 00:19 97.7 F 109 H 17 130/83 99 08/06/18 20:05 93 L 08/06/18 20:00 98.2 F 111 H 16 161/92 H 93 L Weight Admit Weight 67.993 kg Weight 67.993 kg I&O: 08/05/18 08/06/18 08/07/18 06:59 06:59 06:59 Intake Total 675 850 650 Output Total 800 Balance -125 850 650 Result Diagrams: 08/07/18 07:41 08/07/18 07:41 Phys Exam - Physical Examination Constitutional: NAD HEENT: moist MMs, sclera anicteric Neck: supple, full ROM Respiratory: no wheezing, no rales, no rhonchi, clear to auscultation bilateral Cardiovascular: RRR, no significant murmur Gastrointestinal: positive bowel sounds Musculoskeletal: no edema Neurological: non-focal, moves all 4 limbs Psychiatric: normal affect, A&O x 3 Skin: no rash, normal turgor Dx/Plan (1) Metastatic breast cancer Code(s): C50.919 - MALIGNANT NEOPLASM OF UNSP SITE OF UNSPECIFIED FEMALE BREAST Status: Acute (2) Hypomagnesemia Code(s): E83.42 - HYPOMAGNESEMIA Status: Acute (3) Hypophosphatemia Code(s): E83.39 - OTHER DISORDERS OF PHOSPHORUS METABOLISM Status: Acute (4) Elevated troponin Code(s): R74.8 - ABNORMAL LEVELS OF OTHER SERUM ENZYMES Status: Acute (5) Hyperbilirubinemia Code(s): E80.6 - OTHER DISORDERS OF BILIRUBIN METABOLISM Status: Acute (6) Hypokalemia Code(s): E87.6 - HYPOKALEMIA Status: Acute (7) Thrombocytopenia Code(s): D69.6 - THROMBOCYTOPENIA, UNSPECIFIED Status: Acute (8) Transaminitis Code(s): R74.0 - NONSPEC ELEV OF LEVELS OF TRANSAMNS & LACTIC ACID DEHYDRGNSE Status: Acute - Plan Plan: Ms. Kilgore is a 58yo female with pmh of metastatic breast cancer admitted for thrombocytopenia. Thrombocytopenia - Has been stable between 6-8 s/p 2 packs of platelets since admission. Per onc likely 2/2 BM infiltration from brain mets &/or chemo. 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 Onc on board with this. - Will minimize blood draws & monitor vitals closely. Anemia - Hgb up to 10.4 yesterday s/p 1 unit of PRBCs given yesterday. Repeat pending this AM. - Will continue to monitor w/ QD CBCs & transfuse PRN. Metastatic breast cancer - Per Dr. Sarah & Dr. Pena, patient has a very poor prognosis and do not recommend pursuing any additional treatment. Both believe patient would benefit most from assuming hospice care. CM placed referral to [facility] yesterday. Will also have PC readdress code status and sign an OOH-DNAR if needed. - Will continue 50mg oxycontin BID with percocet 5/325 Q4H PRN for breakthrough pain. - Will continue gabapentin for bony met pain control. - Ensure Enlive TID after meals. - PT cleared for home with hospice and support yesterday. Elevated Troponin - No ASA due to thrombocytopenia - EKG with ST segment changes, T wave inversions - Repeat EKG unchanged. - Likely demand ischemia. Very low suspicion for ACS. Will stop trending. Transaminitis - likely 2/2 liver mets Hyperbilirubinemia - likely 2/2 liver mets Hypokalemia, resolved - 4.3 yesterday. Repeat pending this AM. - Will continue to monitor Hypomagnesemia - Mg low at 1.4 yesterday. Repeat pending this AM. - Will replace with 2g IV - Will continue to monitor and replace PRN Hypophosphatemia, resolved - Phos at 2.1 yesterday. Repeat pending this AM. - Will continue to monitor and replace PRN Hearing loss - likely result of carboplatin tx Code Status: FULL DVT ppx: SCDs and walking program/PT GI PPx: None Dispo: Awaiting recs from Onc regarding d/c. Referral for hospice placed yesterday. Awaiting acceptance.
[2018-08-07 08:12] LABS: Hemoglobin 9.3 g/dL (12.0-16.0); Mean Corpuscular HGB CONC 32.1 g/dL (32.0-36.0); Mean Corpuscular Hemoglobin 30.2 pg (27.0-31.0); Mean Platelet Volume 17.6 fL (7.4-10.4); Platelet Count 7 thou/uL (130-400); RBC Distribution Width 15.7 % (11.5-14.5); Red Blood Cell (RBC) Count 3.07 mill/uL (4.20-5.40); White Blood Cell (WBC) Count 6.2 thou/uL (4.8-10.8)
[2018-08-07 08:35] LABS: Anion Gap 14 mmol/L (10-20); BUN (Urea Nitrogen) 8 mg/dL (9.8-20.1); Calc. Creatinine Clearance 105 mL/min (70-130); Calcium 8.2 mg/dL (7.8-10.44); Carbon Dioxide 23 mmol/L (22-29); Chloride 105 mmol/L (98-107); Estimated GFR-MDRD Greater than 90; Glucose 170 mg/dL (70-105); Magnesium 1.5 mg/dL (1.6-2.6); Potassium 4.2 mmol/L (3.5-5.1); Sodium 138 mmol/L (136-145)
[2018-08-07 08:43] LABS: Phosphorus 1.9 mg/dL (2.3-4.7)
[2018-08-07] MEDS ORDERED: Magnesium 2 GM/50 ML 2 GM in Premix Bag 1 BAG IVPB SCH (09:00)
[2018-08-07] MEDS ORDERED: Amlodipine 5 MG TAB PO SCH (09:00)
[2018-08-07] MEDS: Polyethylene Glycol 3350 17 GM Packet PO SCH (09:51)
[2018-08-07] MEDS: Docusate 100 MG CAP PO SCH (09:51)
[2018-08-07] MEDS: Gabapentin 300 MG CAP PO SCH (09:52)
[2018-08-07] MEDS: oxyCODONE ER 20 MG TAB PO SCH (09:52)
[2018-08-07] MEDS: Potassium Chloride 20 MEQ TAB PO SCH (09:52)
[2018-08-07] MEDS: Famotidine 20 MG TAB PO SCH (09:52)
[2018-08-07] MEDS: Dexamethasone 4 MG TAB PO SCH (09:52)
[2018-08-07] MEDS: oxyCODONE ER 10 MG TAB PO SCH (09:53)
[2018-08-07 10:19] LABS: Band 17 % (5-11); Lymphocytes 13 % (21-51); Metamyelocyte 1 % (0-0); Monocytes 2 % (0-10); Myelocyte 1 % (0-0); Neutrophil 65 % (42-75); Nucleated RBC 9 % (0); Platelet Morphology Comment Appears Decreased; Polychromasia SLIGHT = 2-3 cells (100X) (0-2/hpf); Reactive Lymphocytes 1 % (0-10)
[2018-08-07 10:20] LABS: MDiff Complete? YES
[2018-08-07 12:00] VITALS: BP 143/82; TEMP 97.8
[2018-08-07] MEDS: Ondansetron ODT 4 MG TAB PO PRN (12:23)
--- NOTE | 2018-08-07 15:00 | PRG ---
DATE OF SERVICE: 08/07/2018 Ms. Kilgore is in good spirits this morning. We are arranging for discharge later this morning to the care of hospice. Job ID: [id number]
--- NOTE | 2018-08-09 19:32 | EKG ---
Test Reason : Blood Pressure : / mmHG Vent. Rate : 090 BPM Atrial Rate : 090 BPM P-R Int : 090 ms QRS Dur : 074 ms QT Int : 422 ms P-R-T Axes : 043 034 -54 degrees QTc Int : 516 ms Sinus rhythm with short OK T wave abnormality, consider anterior ischemia T wave inversion V3-V5 Abnormal ECG Confirmed by TAYE DILLON DO ([id number]), mapping editor DAIN GOTTI ([id number]) on 08/09/2018 7:31:43 PM Referred By: Confirmed By:TAYE DILLON DO
--- NOTE | 2018-08-11 10:48 | DIS ---
DATE OF ADMISSION: 08/02/2018 DATE OF DISCHARGE: 08/07/2018 RESIDENT: Jennifer Mayo MD ADMITTING ATTENDING: Bola Rich MD DISCHARGE ATTENDING: Alvin White MD CONSULTS: 1. Oncology, Eusebia Sarah MD. 2. Radiation Oncology, Yves Pena MD. PROCEDURES: Chest x-ray on 08/02/2018, which showed no active intrathoracic disease but findings suspicious for some sclerotic bone metastasis. PRIMARY DIAGNOSES: 1. Metastatic breast cancer with metastases to the bone and brain. 2. Refractory thrombocytopenia. 3. Hypokalemia. 4. Hypomagnesemia. 5. Hypophosphatemia. 6. Elevated troponin secondary to metastatic cancer. 7. Transaminitis and hyperbilirubinemia, most likely secondary to metastatic disease. SECONDARY DIAGNOSIS: Hypertension. DISCHARGE MEDICATIONS: 1. Norvasc 5 mg p.o. daily. 2. Decadron 4 mg p.o. b.i.d. 3. Famotidine 20 mg p.o. b.i.d. 4. Gabapentin 300 mg p.o. t.i.d. 5. Zofran 4 mg p.o. every 6 hours p.r.n. 6. Percocet 5/325, one tab p.o. every 6 hours p.r.n. 7. OxyContin 50 mg p.o. b.i.d. 8. MiraLAX 17 g p.o. daily. 9. Senna 17.2 mg p.o. b.i.d. DISCONTINUED MEDICATIONS: 1. [place] 10/325 p.o. every 4 hours p.r.n. 2. Gemzar. 3. Docusate 100 mg p.o. b.i.d. 4. Carboplatin 150 mg. HOSPITAL COURSE: The patient is a 58-year-old female with a past medical history significant for metastatic brain cancer with metastases to the brain and bone, who presented via EMS with a chief complaint of body aches. Of note, the patient was most recently being treated at [facility] for the last 2 weeks, where she presented with fevers and thrombocytopenia. However, the family was unsatisfied with her care there and decided to leave the facility against medical advice and presented to another hospital for a second opinion and continuation of care. On presentation to the emergency department, the patient reported she was in 10/10 pain in her lower abdomen, that improved to 8/10 status post 8 mg of IV morphine. On presentation, her vitals were noted to be significant for an elevated blood pressure of 198/134, that decreased to 138/90 status post 8 mg of IV morphine. Routine lab work including a CBC, CMP, UA, and chest x-ray were obtained. Her CBC was notable for normocytic anemia as well as significant thrombocytopenia with hemoglobin of 9.1 and platelet count of 7. Her CMP was notable for hypokalemia with a potassium 3.2, as well as an elevated total bilirubin of 1.7, AST of 91, alkaline phosphatase of 420. Initial troponin was slightly elevated at 0.038, which eventually slightly uptrended. However, her EKG was within normal limits. Magnesium and phosphorus were also monitored and were both noted to be low at 1.1 and 2.1 respectively. Her chest x-ray was also notable for some sclerotic appearing metastatic lesions. The patient was therefore admitted to the surgical floor for close observation and pain control overnight. The family also requested that the patient be seen by Dr. Eusebia Sarah, as one of the patient's daughters had previously been treated by her for breast cancer. The next morning, the patient was status post 1 unit of platelets and a repeat CBC showed her platelets were stable around 8. Electrolyte abnormalities again were also noted and treated via IV and p.o. medications as appropriate. Her pain regimen was transitioned to IV to p.o. with equivalent morphine milliequivalents. By the third day of her hospitalization, the patient reported significant improvement in her pain. On day 3 of hospitalization, Dr. Eusebia Sarah's physician bindery library technical assistant came and evaluated the patient and after reviewing her outside records from [facility], did not recommend that the patient pursue aggressive chemotherapy. Dr. Eusebia Sarah came and visited with the patient and her family the following day, and also reiterated these recommendations. However, Dr. Sarah did consult Radiation Oncology, Dr. Yves Pena, to come and speak with the patient due to their desire to continue to treat the patient's brain metastases. Again, Dr. Yves Pena, also recommended discontinuing any aggressive treatment as the patient would likely not be able to tolerate it as she was end-stage in her disease. He did however recommend p.o. steroids for symptomatic control and recommended that the patient pursue hospice care. The day before discharge, Case Management met with the patient and her family and referral for [facility] was placed. By the date of discharge, the patient had been excepted by [facility] and PT recommended home with hospice and support as well after evaluation. The patient was therefore cleared for discharge home with home hospice for pain control and symptomatic treatment and management. Regarding the patient's anemia, by day 4 of hospitalization, the patient's hemoglobin was noted to be significantly low at 6.7. She was therefore given 1 unit of packed RBCs and her hemoglobin responded appropriately, noted to be up to 9.6 later that day. Regarding the patient's refractory thrombocytopenia, after receiving 2 units of platelets in the beginning of her hospital stay, it was elected to not transfuse any additional placement for the remainder of her stay, as it was determined that the patient most likely develops significant antibodies and will require specially ordered platelets to be transfused which were not available in our facility. In addition, given her poor prognosis, this was deemed to be an unnecessary measure. DISPOSITION: Stable. DISCHARGE INSTRUCTIONS: 1. Location: Home with home hospice. 2. Activity: As tolerated. No restrictions. 3. Diet: Regular diet. 4. Followup: The patient was instructed to follow up with her primary care provider within 14 days of discharge. Job ID: [id number]
== END 2018-08-07 16:01 | disposition hospice, home (50) | DRG 813 ==
LOC: ERS 18:04 → SURG A 20:10
PROVIDERS: ADMIT Family Medicine; ATTEND Family Medicine
PROC: 30233R1 Transfusion of Nonautologous Platelets into Peripheral Vein, Percutaneous Approach (ICD-10-PCS; principal; 2018-08-02)
DX: D69.59 Other secondary thrombocytopenia (principal); I24.8 Other forms of acute ischemic heart disease; C79.51 Secondary malignant neoplasm of bone; C79.32 Secondary malignant neoplasm of cerebral meninges; D61.818 Other pancytopenia; D63.0 Anemia in neoplastic disease; T45.1X5A Adverse effect of antineoplastic and immunosuppressive drugs, initial encounter; G89.3 Neoplasm related pain (acute) (chronic); C50.919 Malignant neoplasm of unspecified site of unspecified female breast; Z66 Do not resuscitate; Z51.5 Encounter for palliative care; R74.0 Nonspecific elevation of levels of transaminase and lactic acid dehydrogenase [LDH]; E87.6 Hypokalemia; E80.6 Other disorders of bilirubin metabolism; E83.42 Hypomagnesemia; D64.9 Anemia, unspecified; E83.39 Other disorders of phosphorus metabolism; H91.90 Unspecified hearing loss, unspecified ear; Z92.3 Personal history of irradiation; K59.00 Constipation, unspecified
CPT/HCPCS: 36430; 71045; 80048; 80053; 81003; 81015; 82553; 83735; 84100; 84484; 85025; 85060; 85610; 85730; 86850; 86900; 86901; 87040; 93005; 93010; 96374; J1642; J2270; J3475; J8540; P9016; P9035; Q0162